=== PATIENT | female | born 1945 | race Caucasian/White ===

== ENCOUNTER 2023-01-16 16:23 | Inpatient (IN) | payer MEDICARE, MEDICAID ==
[2023-01-16] MEDS ORDERED: Piperacillin/Tazobactam 4.5 GM VIAL ONE (17:25)
[2023-01-16 17:29] LABS: #Basophils 0.1 thou/uL (0.0-0.2); #Monocytes 1.2 thou/uL (0.11-0.59); #Neutrophils 14.3 thou/uL (1.40-6.50); %Basophils 0.8 % (0.0-1.0); %Eosinophils 0.1 % (0.0-10.0); %Lymphocytes 10.7 % (21.0-51.0); %Monocytes 6.8 % (0.0-10.0); Hemoglobin 10.8 g/dL (12.0-16.0); Mean Corpuscular HGB CONC 33.8 g/dL (32.0-36.0); Mean Platelet Volume 9.3 fL (7.4-10.4); Platelet Count 576 10x3/uL (130-400); RBC Distribution Width 17.9 % (11.5-14.5); Red Blood Cell (RBC) Count 3.72 mill/uL (4.20-5.40); White Blood Cell (WBC) Count 17.7 10x3/uL (4.8-10.8)
[2023-01-16 17:45] LABS: ALT (SGPT) 11 U/L (8-55); AST (SGOT) 20 U/L (5-34); Alkaline Phosphatase 80 U/L (40-110); Anion Gap 16 mmol/L (10-20); BUN (Urea Nitrogen) 23 mg/dL (9.8-20.1); Bilirubin, Total 0.5 mg/dL (0.2-1.2); Calc. Creatinine Clearance 0 mL/min (70-130); Calcium 8.7 mg/dL (7.8-10.44); Carbon Dioxide 26 mmol/L (23-31); Chloride 100 mmol/L (98-107); Estimated GFR 81; Globulin 2.6 g/dL (2.4-3.5); Glucose 92 mg/dL (83-110); Potassium 3.9 mmol/L (3.5-5.1); Protein, Total 5.6 g/dL (5.8-8.1); Sodium 138 mmol/L (136-145)
[2023-01-16] MEDS ORDERED: Vancomycin HCl 750 MG in Sodium Chloride 0.9% 250 ML 250 ML IVPB SCH (19:00)
[2023-01-16 19:10] LABS: Bilirubin Negative (Negative); Blood, Urine 1+ (Negative); CAUTI Indications for Culture Dysuria,urgency,freq; Clarity Turbid (Clear); Glucose, Urine (Dipstick) Normal (Negative); Ketone, Urine Trace mg/dL (Negative); Leukocyte 500 Leu/uL (Negative); Nitrite 1+ (Negative); Protein, Urine (Dipstick) 30 mg/dL (Neg-Trace); Urobilinogen Normal mg/dL (Less than 2); pH, Urine 5.5 (5.0-9.0)
[2023-01-16 19:20] LABS: Specific Gravity, Urine 1.053 (1.002-1.036)
[2023-01-16 19:21] LABS: Bacteria/HPF 3+ HPF (None Seen); Squamous Epithelial 0-3 HPF (0-3); WBC/HPF 21-50 HPF (0-3)
[2023-01-16 19:22] LABS: Urine Culture Reflex Yes Yes
[2023-01-16] MEDS ORDERED: Ondansetron PF 4 MG/2 ML Vial IVP PRN (21:18)
[2023-01-16] MEDS ORDERED: Acetaminophen 650 MG Suppository PR PRN (21:18)
[2023-01-16] MEDS ORDERED: Ondansetron ODT 4 MG TAB PO PRN (21:18)
[2023-01-16] MEDS ORDERED: Pantoprazole 40 MG VIAL IVP SCH (22:15)
[2023-01-16] MEDS ORDERED: Piperacillin/Tazobactam 3.375 GM in Sodium Chloride 0.9% 100 ML IVPB SCH (22:45)
[2023-01-16 22:46] VITALS: BMI 17.1
[2023-01-16] MEDS ORDERED: Glucagon 1 MG/ML KIT IM PRN (23:01)
[2023-01-16] MEDS ORDERED: Dextrose 5% in Water 1,000 ML IV PRN (23:01)
[2023-01-16] MEDS ORDERED: Dextrose 50% Abboject 50 ML SYRINGE SLOW IVP PRN (23:01)
[2023-01-16] MEDS ORDERED: HumaLOG 300 UNITS/3 ML VIAL SC PRN ×2 (23:01)
[2023-01-16] MEDS ORDERED: Sodium Chloride 0.9% 1,000 ML IV SCH (23:59)
[2023-01-17] MEDS: Vancomycin HCl 750 MG in Sodium Chloride 0.9% 250 ML 250 ML IVPB SCH ×2 (05:27→18:48)
[2023-01-17 06:24] LABS: #Basophils 0.2 thou/uL (0.0-0.2); #Eosinphils 0.1 thou/uL (0.0-0.7); #Monocytes 1.3 thou/uL (0.11-0.59); %Basophils 1.6 % (0.0-1.0); %Eosinophils 0.5 % (0.0-10.0); %Lymphocytes 16.6 % (21.0-51.0); %Monocytes 11.4 % (0.0-10.0); %Neutrophils 69.2 % (42.0-75.0); Hematocrit 24.9 % (36.0-47.0); Hemoglobin 8.2 g/dL (12.0-16.0); Mean Corpuscular HGB CONC 32.9 g/dL (32.0-36.0); Mean Corpuscular Hemoglobin 28.8 pg (27.0-31.0); Mean Corpuscular Volume 87.4 fl (78.0-98.0); Mean Platelet Volume 9.5 fL (7.4-10.4); RBC Distribution Width 18.1 % (11.5-14.5); Red Blood Cell (RBC) Count 2.85 mill/uL (4.20-5.40); White Blood Cell (WBC) Count 11.6 10x3/uL (4.8-10.8)
[2023-01-17 06:32] LABS: Platelet Count 430 10x3/uL (130-400)
[2023-01-17 06:58] LABS: Anion Gap 12 mmol/L (10-20); BUN (Urea Nitrogen) 19 mg/dL (9.8-20.1); Calc. Creatinine Clearance 42 mL/min (70-130); Calcium 7.6 mg/dL (7.8-10.44); Carbon Dioxide 23 mmol/L (23-31); Chloride 105 mmol/L (98-107); Estimated GFR 73; Glucose 199 mg/dL (83-110); Potassium 3.3 mmol/L (3.5-5.1); Sodium 137 mmol/L (136-145)
[2023-01-17] MEDS ORDERED: Piperacillin/Tazobactam 3.375 GM in Sodium Chloride 0.9% 100 ML IVPB SCH (07:00)
[2023-01-17] MEDS ORDERED: VANCOMYCIN 1.25 GM/250 ML BAG 1.25 GM in Premix Bag 1 BAG IVPB SCH (07:00)
[2023-01-17] MEDS: Piperacillin/Tazobactam 3.375 GM in Sodium Chloride 0.9% 100 ML IVPB SCH ×2 (08:21→15:06)
[2023-01-17] MEDS: Pantoprazole 40 MG VIAL IVP SCH (08:22)
[2023-01-17] MEDS: Sodium Chloride 0.9% 1,000 ML IV SCH (09:50)
[2023-01-17] MEDS ORDERED: Electrolyte Replacement Protocol 1 EACH FS SCH (14:45)
[2023-01-17] MEDS ORDERED: Electrolyte Replacement Protocol FS PRN (15:15)
[2023-01-17 15:45] LABS: Hematocrit 25.8 % (36.0-47.0); Hemoglobin 8.7 g/dL (12.0-16.0); Platelet Count 444 10x3/uL (130-400)
[2023-01-17] MEDS ORDERED: Potassium Chloride 20 MEQ TAB PO SCH (21:00)
[2023-01-17 21:06] LABS: Hematocrit 27.2 % (36.0-47.0); Hemoglobin 8.8 g/dL (12.0-16.0); Platelet Count 439 10x3/uL (130-400)
[2023-01-18] MEDS: Piperacillin/Tazobactam 3.375 GM in Sodium Chloride 0.9% 100 ML IVPB SCH ×3 (00:14→15:46)
[2023-01-18] MEDS: Sodium Chloride 0.9% 1,000 ML IV SCH (00:16)
[2023-01-18 05:23] LABS: #Basophils 0.2 thou/uL (0.0-0.2); #Eosinphils 0.3 thou/uL (0.0-0.7); #Monocytes 1.2 thou/uL (0.11-0.59); #Neutrophils 5.8 thou/uL (1.40-6.50); %Basophils 1.6 % (0.0-1.0); %Eosinophils 2.7 % (0.0-10.0); %Monocytes 11.8 % (0.0-10.0); %Neutrophils 55.9 % (42.0-75.0); Hematocrit 23.9 % (36.0-47.0); Hemoglobin 8.1 g/dL (12.0-16.0); Mean Corpuscular HGB CONC 33.9 g/dL (32.0-36.0); Mean Corpuscular Hemoglobin 29.5 pg (27.0-31.0); Mean Corpuscular Volume 86.9 fl (78.0-98.0); Mean Platelet Volume 9.3 fL (7.4-10.4); Platelet Count 397 10x3/uL (130-400); RBC Distribution Width 18.1 % (11.5-14.5); Red Blood Cell (RBC) Count 2.75 mill/uL (4.20-5.40); White Blood Cell (WBC) Count 10.4 10x3/uL (4.8-10.8)
[2023-01-18 05:46] LABS: Anion Gap 11 mmol/L (10-20); BUN (Urea Nitrogen) 11 mg/dL (9.8-20.1); Calc. Creatinine Clearance 47 mL/min (70-130); Calcium 7.2 mg/dL (7.8-10.44); Carbon Dioxide 22 mmol/L (23-31); Chloride 107 mmol/L (98-107); Estimated GFR 84; Glucose 78 mg/dL (83-110); Potassium 3.1 mmol/L (3.5-5.1); Sodium 137 mmol/L (136-145)
[2023-01-18 05:47] LABS: Vancomycin, Trough 16.7 ug/mL
[2023-01-18] MEDS: Vancomycin HCl 750 MG in Sodium Chloride 0.9% 250 ML 250 ML IVPB SCH ×2 (06:51→17:46)
[2023-01-18] MEDS ORDERED: Potassium Chloride 20 MEQ TAB PO SCH (08:00)
[2023-01-18] MEDS: Pantoprazole 40 MG VIAL IVP SCH (08:44)
[2023-01-19] MEDS: Piperacillin/Tazobactam 3.375 GM in Sodium Chloride 0.9% 100 ML IVPB SCH ×4 (00:28→23:08)
[2023-01-19] MEDS: Vancomycin HCl 750 MG in Sodium Chloride 0.9% 250 ML 250 ML IVPB SCH ×2 (05:10→19:08)
[2023-01-19 05:57] LABS: #Basophils 0.2 thou/uL (0.0-0.2); #Eosinphils 0.4 thou/uL (0.0-0.7); #Monocytes 1.3 thou/uL (0.11-0.59); #Neutrophils 5.8 thou/uL (1.40-6.50); %Basophils 1.8 % (0.0-1.0); %Eosinophils 3.3 % (0.0-10.0); %Lymphocytes 31.6 % (21.0-51.0); %Monocytes 11.2 % (0.0-10.0); %Neutrophils 50.7 % (42.0-75.0); Hematocrit 26.3 % (36.0-47.0); Hemoglobin 8.9 g/dL (12.0-16.0); Mean Corpuscular HGB CONC 33.8 g/dL (32.0-36.0); Mean Corpuscular Hemoglobin 29.1 pg (27.0-31.0); Mean Corpuscular Volume 85.9 fl (78.0-98.0); Mean Platelet Volume 9.6 fL (7.4-10.4); Platelet Count 432 10x3/uL (130-400); RBC Distribution Width 17.7 % (11.5-14.5); Red Blood Cell (RBC) Count 3.06 mill/uL (4.20-5.40); White Blood Cell (WBC) Count 11.3 10x3/uL (4.8-10.8)
[2023-01-19 06:24] LABS: Anion Gap 12 mmol/L (10-20); BUN (Urea Nitrogen) 7 mg/dL (9.8-20.1); Calc. Creatinine Clearance 53 mL/min (70-130); Calcium 7.3 mg/dL (7.8-10.44); Carbon Dioxide 20 mmol/L (23-31); Chloride 108 mmol/L (98-107); Estimated GFR 90; Glucose 76 mg/dL (83-110); Sodium 137 mmol/L (136-145)
[2023-01-19] MEDS: Pantoprazole 40 MG VIAL IVP SCH (08:05)
[2023-01-19] MEDS ORDERED: Potassium Bicarbonate/Cit Ac 20 MEQ TAB PO SCH (09:00)
[2023-01-19] MEDS ORDERED: ALPRAZolam 0.25 MG TAB PO SCH (09:00)
[2023-01-19 14:24] LABS: Anion Gap 16 mmol/L (10-20); BUN (Urea Nitrogen) 6 mg/dL (9.8-20.1); Calc. Creatinine Clearance 51 mL/min (70-130); Calcium 7.5 mg/dL (7.8-10.44); Carbon Dioxide 20 mmol/L (23-31); Chloride 105 mmol/L (98-107); Estimated GFR 89; Glucose 73 mg/dL (83-110); Potassium 2.8 mmol/L (3.5-5.1); Sodium 138 mmol/L (136-145)
[2023-01-19 18:45] LABS: Vancomycin, Trough 23.4 ug/mL
[2023-01-19] MEDS: Vancomycin HCl 500 MG in Sodium Chloride 0.9% 100 ML IVPB SCH (21:08)
[2023-01-19] MEDS: Mirtazapine 15 MG Soltab PO SCH (21:10)
[2023-01-19] MEDS: Acetaminophen 325 MG TAB PO PRN (21:10)
[2023-01-19] MEDS: ALPRAZolam 0.25 MG TAB PO PRN (21:10)
[2023-01-19] MEDS: Potassium Bicarbonate/Cit Ac 20 MEQ TAB PO SCH (23:07)
[2023-01-20] MEDS: Potassium Bicarbonate/Cit Ac 20 MEQ TAB PO SCH (02:34)
[2023-01-20 07:23] LABS: #Basophils 0.2 thou/uL (0.0-0.2); #Eosinphils 0.3 thou/uL (0.0-0.7); #Monocytes 1.1 thou/uL (0.11-0.59); #Neutrophils 3.6 thou/uL (1.40-6.50); %Basophils 1.9 % (0.0-1.0); %Eosinophils 3.1 % (0.0-10.0); %Lymphocytes 42.5 % (21.0-51.0); %Monocytes 12.1 % (0.0-10.0); %Neutrophils 39.6 % (42.0-75.0); Hematocrit 25.4 % (36.0-47.0); Hemoglobin 8.8 g/dL (12.0-16.0); Mean Corpuscular HGB CONC 34.6 g/dL (32.0-36.0); Mean Corpuscular Hemoglobin 29.6 pg (27.0-31.0); Mean Corpuscular Volume 85.5 fl (78.0-98.0); Mean Platelet Volume 9.4 fL (7.4-10.4); Platelet Count 419 10x3/uL (130-400); RBC Distribution Width 17.5 % (11.5-14.5); Red Blood Cell (RBC) Count 2.97 mill/uL (4.20-5.40); White Blood Cell (WBC) Count 9.1 10x3/uL (4.8-10.8)
[2023-01-20 07:47] LABS: Anion Gap 10 mmol/L (10-20); BUN (Urea Nitrogen) 5 mg/dL (9.8-20.1); Calc. Creatinine Clearance 47 mL/min (70-130); Carbon Dioxide 22 mmol/L (23-31); Chloride 109 mmol/L (98-107); Estimated GFR 86; Glucose 208 mg/dL (83-110); Potassium 2.7 mmol/L (3.5-5.1); Sodium 138 mmol/L (136-145)
[2023-01-20] MEDS: Vancomycin HCl 500 MG in Sodium Chloride 0.9% 100 ML IVPB SCH ×2 (08:39→20:09)
[2023-01-20] MEDS: Piperacillin/Tazobactam 3.375 GM in Sodium Chloride 0.9% 100 ML IVPB SCH ×2 (08:39→15:09)
[2023-01-20] MEDS: Pantoprazole 40 MG VIAL IVP SCH (08:40)
[2023-01-20] MEDS: Potassium Chloride 20 MEQ TAB PO SCH ×2 (08:46→11:56)
[2023-01-20 09:25] LABS: Magnesium 0.7 mg/dL (1.6-2.6)
[2023-01-20] MEDS ORDERED: Magnesium Sulfate 4 GM in Sodium Chloride 0.9% 250 ML 250 ML IVPB SCH (09:30)
[2023-01-20] MEDS ORDERED: Magnesium Sulfate In Water 4 GM in Premix Bag 1 BAG IVPB SCH (11:00)
[2023-01-20 13:10] LABS: Magnesium 1.8 mg/dL (1.6-2.6); Potassium 2.9 mmol/L (3.5-5.1)
[2023-01-20] MEDS ORDERED: Magnesium 2 GM/50 ML(in water) 2 GM in Premix Bag 1 BAG IVPB SCH (15:00)
[2023-01-20] MEDS: Potassium Chloride 20 MEQ in Premix Bag 1 BAG IVPB SCH ×2 (15:09→17:27)
[2023-01-20] MEDS: Acetaminophen 325 MG TAB PO PRN (18:00)
[2023-01-20] MEDS: Mirtazapine 15 MG Soltab PO SCH (20:12)
[2023-01-20] MEDS: ALPRAZolam 0.25 MG TAB PO PRN (20:12)
[2023-01-20 20:40] VITALS: TEMP 97.6
[2023-01-21] MEDS: Piperacillin/Tazobactam 3.375 GM in Sodium Chloride 0.9% 100 ML IVPB SCH ×2 (00:45→08:56)
[2023-01-21 07:06] LABS: #Basophils 0.2 thou/uL (0.0-0.2); #Eosinphils 0.7 thou/uL (0.0-0.7); #Monocytes 1.3 thou/uL (0.11-0.59); #Neutrophils 4.7 thou/uL (1.40-6.50); %Basophils 1.7 % (0.0-1.0); %Eosinophils 5.6 % (0.0-10.0); %Lymphocytes 40.2 % (21.0-51.0); %Monocytes 11.2 % (0.0-10.0); %Neutrophils 40.5 % (42.0-75.0); Hematocrit 27.4 % (36.0-47.0); Hemoglobin 8.9 g/dL (12.0-16.0); Mean Corpuscular HGB CONC 32.5 g/dL (32.0-36.0); Mean Corpuscular Hemoglobin 29.3 pg (27.0-31.0); Mean Platelet Volume 9.3 fL (7.4-10.4); Platelet Count 445 10x3/uL (130-400); RBC Distribution Width 18.6 % (11.5-14.5); Red Blood Cell (RBC) Count 3.04 mill/uL (4.20-5.40); White Blood Cell (WBC) Count 11.6 10x3/uL (4.8-10.8)
[2023-01-21 07:18] LABS: Mean Corpuscular Volume 90.1 fl (78.0-98.0)
[2023-01-21 07:26] LABS: Anion Gap 9 mmol/L (10-20); BUN (Urea Nitrogen) 5 mg/dL (9.8-20.1); Calc. Creatinine Clearance 46 mL/min (70-130); Calcium 7.1 mg/dL (7.8-10.44); Carbon Dioxide 18 mmol/L (23-31); Chloride 116 mmol/L (98-107); Estimated GFR 83; Glucose 142 mg/dL (83-110); Magnesium 2.4 mg/dL (1.6-2.6); Potassium 3.9 mmol/L (3.5-5.1); Sodium 139 mmol/L (136-145)
[2023-01-21] MEDS: Pantoprazole 40 MG VIAL IVP SCH (08:56)
[2023-01-21] MEDS ORDERED: Vancomycin HCl 750 MG in Sodium Chloride 0.9% 250 ML 250 ML IVPB SCH (12:00)
[2023-01-21 12:09] VITALS: BP 146/79
== END 2023-01-21 14:15 | DRG 698 ==
LOC: ERS 16:23 → T4-B 20:07
PROVIDERS: ADMIT Student in an Organized Health Care Education/Training Program; ATTEND Family Medicine
DX: T83.510A Infection and inflammatory reaction due to cystostomy catheter, initial encounter (principal); A41.9 Sepsis, unspecified organism; E43 Unspecified severe protein-calorie malnutrition; K92.0 Hematemesis; E78.00 Pure hypercholesterolemia, unspecified; I10 Essential (primary) hypertension; E11.9 Type 2 diabetes mellitus without complications; F03.90 Unspecified dementia, unspecified severity, without behavioral disturbance, psychotic disturbance, mood disturbance, and anxiety; K21.9 Gastro-esophageal reflux disease without esophagitis; F41.9 Anxiety disorder, unspecified; L89.159 Pressure ulcer of sacral region, unspecified stage; L08.9 Local infection of the skin and subcutaneous tissue, unspecified; D64.9 Anemia, unspecified; E87.6 Hypokalemia; F32.A Depression, unspecified; E83.42 Hypomagnesemia; Z98.51 Tubal ligation status
CPT/HCPCS: 36415; 36416; 71045; 74177; 80048; 80053; 80202; 81001; 83605; 83735; 85025; 87040; 87077; 87086; 87186; 96365; 96367; 97139; C9113; J1815; J2405; J2543; J3370; J3475; J3480; J3490; J7050

== ENCOUNTER 2023-04-12 23:18 | Inpatient (IN) | payer MEDICARE, MEDICAID ==
[2023-04-13] MEDS ORDERED: Dextrose 50% Abboject 50 ML SYRINGE SLOW IVP PRN (00:29)
[2023-04-13] MEDS ORDERED: Glucagon 1 MG/ML KIT IM PRN (00:29)
[2023-04-13] MEDS ORDERED: HumaLOG 300 UNITS/3 ML VIAL SC PRN ×2 (00:29)
[2023-04-13] MEDS ORDERED: HYDROcodone/Acetaminophen 5/325 mg Tablet PO PRN (00:29)
[2023-04-13] MEDS ORDERED: Dextrose 5% in Water 1,000 ML IV PRN (00:29)
[2023-04-13 01:54] LABS: #Basophils 0.1 thou/uL (0.0-0.2); #Eosinphils 0.1 thou/uL (0.0-0.7); #Neutrophils 8.9 thou/uL (1.40-6.50); %Monocytes 13.5 % (0.0-10.0); %Neutrophils 61.2 % (42.0-75.0); Hematocrit 22.4 % (36.0-47.0); Hemoglobin 7.5 g/dL (12.0-16.0); Mean Corpuscular HGB CONC 33.5 g/dL (32.0-36.0); Mean Corpuscular Hemoglobin 31.5 pg (27.0-31.0); Mean Corpuscular Volume 94.1 fl (78.0-98.0); Mean Platelet Volume 9.3 fL (7.4-10.4); Platelet Count 431 10x3/uL (130-400); RBC Distribution Width 14.5 % (11.5-14.5); Red Blood Cell (RBC) Count 2.38 mill/uL (4.20-5.40); White Blood Cell (WBC) Count 14.5 10x3/uL (4.8-10.8)
[2023-04-13 02:02] LABS: Actual Bicarbonate (HCO3v) 20.1 mEq/L (22-28); Base Excess -4.1 mEq/L (-2.0 to +3.0); Calcium, Ionized (venous) 0.98 mmol/L (1.16-1.32); Chloride (VBG) 108 mmol/L (98-106); Hematocrit-VBG 25 % (36.0-47.0); Hemoglobin (Hb) 8.5 g/dL (11.7-16.1); Sodium 136 mmol/L (133-146); pH (venous) 7.402 (7.32-7.43)
[2023-04-13 02:18] LABS: ALT (SGPT) 13 U/L (8-55); AST (SGOT) 21 U/L (5-34); Alkaline Phosphatase 75 U/L (40-110); Anion Gap 15 mmol/L (10-20); BUN (Urea Nitrogen) 15 mg/dL (9.8-20.1); Bilirubin, Total 0.2 mg/dL (0.2-1.2); CRP (Inflammatory) 4.64 mg/dL (= or < 0.5); Calc. Creatinine Clearance 0 mL/min (70-130); Carbon Dioxide 19 mmol/L (23-31); Chloride 109 mmol/L (98-107); Estimated GFR 74; Globulin 1.9 g/dL (2.4-3.5); Glucose 131 mg/dL (83-110); Potassium 2.7 mmol/L (3.5-5.1); Protein, Total 3.9 g/dL (5.8-8.1); Sodium 140 mmol/L (136-145)
[2023-04-13 02:20] LABS: Troponin I Less than 0.010 ng/mL (< 0.028)
[2023-04-13] MEDS ORDERED: Potassium Chloride 20 MEQ TAB PO SCH (02:30)
[2023-04-13 03:11] LABS: Calcium 6.8 mg/dL (7.8-10.44)
[2023-04-13] MEDS ORDERED: metroNIDAZOLE 500 MG in Premix 1 BAG IVPB SCH ×2 (03:15→12:00)
[2023-04-13] MEDS ORDERED: Potassium Chloride 40 MEQ in Premix 1 BAG IVPB SCH (03:15)
[2023-04-13 03:24] LABS: Bilirubin Negative (Negative); Blood, Urine Trace (Negative); Glucose, Urine (Dipstick) Negative (Negative); Ketone, Urine Negative (Negative); Leukocyte Small (Negative); Nitrite Positive (Negative); Protein, Urine (Dipstick) Negative (Neg-Trace); Urobilinogen 0.2 mg/dL (Less than 2)
[2023-04-13] MEDS ORDERED: Magnesium 2 GM/50 ML(in water) 2 GM in Premix 1 BAG IVPB SCH ×3 (03:30→14:00)
[2023-04-13] MEDS ORDERED: Vancomycin (BATCH) 1.25 GM in Premix 1 BAG IVPB SCH ×2 (03:30→09:00)
[2023-04-13 03:35] LABS: Bacteria/HPF 4+ HPF (None Seen); CAUTI Indications for Culture Alt mental st,lethar; Clarity Hazy (Clear); RBC/HPF 0-3 HPF (0-3); Squamous Epithelial 0-3 HPF (0-3); WBC/HPF Greater than 50 HPF (0-3)
[2023-04-13] MEDS: Potassium Chloride 20 MEQ in Premix 1 BAG IVPB SCH ×4 (03:40→09:34)
[2023-04-13] MEDS: Lactated Ringer's 1,000 ML IV SCH ×4 (03:42→20:45)
[2023-04-13 03:52] LABS: #Basophils 0.1 thou/uL (0.0-0.2); #Eosinphils 0.1 thou/uL (0.0-0.7); #Monocytes 1.6 thou/uL (0.11-0.59); #Neutrophils 8.3 thou/uL (1.40-6.50); %Basophils 1.1 % (0.0-1.0); %Eosinophils 0.8 % (0.0-10.0); %Lymphocytes 22.1 % (21.0-51.0); %Neutrophils 63.6 % (42.0-75.0); Hematocrit 24.4 % (36.0-47.0); Hemoglobin 8.1 g/dL (12.0-16.0); Mean Corpuscular HGB CONC 33.2 g/dL (32.0-36.0); Mean Corpuscular Hemoglobin 30.6 pg (27.0-31.0); Mean Corpuscular Volume 92.1 fl (78.0-98.0); Mean Platelet Volume 9.4 fL (7.4-10.4); Platelet Count 492 10x3/uL (130-400); RBC Distribution Width 14.5 % (11.5-14.5); Red Blood Cell (RBC) Count 2.65 mill/uL (4.20-5.40); White Blood Cell (WBC) Count 13.1 10x3/uL (4.8-10.8)
[2023-04-13] MEDS ORDERED: Electrolyte Replacement Protocol 1 EACH FS PRN (04:00)
[2023-04-13] MEDS ORDERED: Calcium Gluc 4.6 MEQ/10 ML (100 MG/ML) SLOW IVP ONE (04:11)
[2023-04-13] MEDS ORDERED: CALCIUM GLUC 1 GM/NS 50 ML 1 GM in Premix 1 BAG IVPB SCH (04:15)
[2023-04-13 04:17] LABS: ALT (SGPT) 15 U/L (8-55); AST (SGOT) 21 U/L (5-34); Albumin 2.2 g/dL (3.4-4.8); Alkaline Phosphatase 84 U/L (40-110); Anion Gap 14 mmol/L (10-20); BUN (Urea Nitrogen) 14 mg/dL (9.8-20.1); Bilirubin, Total 0.3 mg/dL (0.2-1.2); Calc. Creatinine Clearance 41 mL/min (70-130); Carbon Dioxide 23 mmol/L (23-31); Chloride 110 mmol/L (98-107); Estimated GFR 71; Globulin 2.1 g/dL (2.4-3.5); Glucose 149 mg/dL (83-110); Protein, Total 4.3 g/dL (5.8-8.1); Sodium 144 mmol/L (136-145)
[2023-04-13 04:20] LABS: Potassium 2.6 mmol/L (3.5-5.1)
[2023-04-13 04:25] LABS: Phosphorus 2.1 mg/dL (2.3-4.7)
[2023-04-13 04:26] LABS: Magnesium 1.5 mg/dL (1.6-2.6)
[2023-04-13 05:18] LABS: Lactic Acid 1.5 mmol/L (0.5-2.2)
[2023-04-13] MEDS: Meropenem 1 GM in Sodium Chloride 0.9% 100 ML IVPB SCH ×2 (06:36→17:01)
[2023-04-13] MEDS: Heparin 5,000 UNITS/ML VIAL SC SCH ×2 (07:50→20:45)
[2023-04-13] MEDS: Pantoprazole 40 MG VIAL IVP SCH ×2 (07:51→20:45)
[2023-04-13] MEDS ORDERED: FLU VACC QS2023(65UP)/MF59C/PF 60 MCG/0.5 ML SYRINGE IM ONE (09:00)
[2023-04-13] MEDS ORDERED: Heparin 5,000 UNITS/ML VIAL SC SCH (09:00)
[2023-04-13] MEDS ORDERED: Famotidine 20 MG TAB PO SCH (09:00)
[2023-04-13] MEDS ORDERED: Cefepime 2 GM in Sodium Chloride 0.9% 100 ML IVPB SCH (09:00)
[2023-04-13] MEDS ORDERED: Iopamidol 370 76% 100 ML VIAL ONE (11:30)
[2023-04-13 13:08] LABS: Magnesium 1.9 mg/dL (1.6-2.6)
[2023-04-13 13:13] LABS: Anion Gap 11 mmol/L (10-20); BUN (Urea Nitrogen) 12 mg/dL (9.8-20.1); Calc. Creatinine Clearance 46 mL/min (70-130); Calcium 7.1 mg/dL (7.8-10.44); Carbon Dioxide 23 mmol/L (23-31); Chloride 110 mmol/L (98-107); Estimated GFR 83; Glucose 124 mg/dL (83-110); Potassium 3.6 mmol/L (3.5-5.1); Sodium 140 mmol/L (136-145)
[2023-04-13] MEDS: PHOS-NAK 1 PKT PACK PO SCH ×2 (13:51→17:00)
[2023-04-13] MEDS: Vancomycin HCl 750 MG in Sodium Chloride 0.9% 250 ML 250 ML IVPB SCH (17:01)
[2023-04-14] MEDS: Meropenem 1 GM in Sodium Chloride 0.9% 100 ML IVPB SCH ×3 (05:43→21:43)
[2023-04-14] MEDS: Lactated Ringer's 1,000 ML IV SCH ×4 (05:43→20:14)
[2023-04-14 07:01] LABS: #Basophils 0.1 thou/uL (0.0-0.2); #Eosinphils 0.4 thou/uL (0.0-0.7); #Monocytes 1.3 thou/uL (0.11-0.59); #Neutrophils 6.4 thou/uL (1.40-6.50); %Eosinophils 3.9 % (0.0-10.0); %Monocytes 11.6 % (0.0-10.0); Hematocrit 22.8 % (36.0-47.0); Hemoglobin 7.6 g/dL (12.0-16.0); Mean Corpuscular HGB CONC 33.3 g/dL (32.0-36.0); Mean Corpuscular Volume 93.1 fl (78.0-98.0); Mean Platelet Volume 9.6 fL (7.4-10.4); Platelet Count 485 10x3/uL (130-400); RBC Distribution Width 14.6 % (11.5-14.5); Red Blood Cell (RBC) Count 2.45 mill/uL (4.20-5.40)
[2023-04-14 08:09] LABS: Anion Gap 11 mmol/L (10-20); BUN (Urea Nitrogen) 10 mg/dL (9.8-20.1); Calc. Creatinine Clearance 55 mL/min (70-130); Carbon Dioxide 23 mmol/L (23-31); Chloride 106 mmol/L (98-107); Estimated GFR 89; Glucose 127 mg/dL (83-110); Magnesium 2.3 mg/dL (1.6-2.6); Potassium 2.8 mmol/L (3.5-5.1); Sodium 137 mmol/L (136-145)
[2023-04-14 08:18] LABS: Calcium 6.9 mg/dL (7.8-10.44)
[2023-04-14] MEDS ORDERED: Potassium Chloride 20 MEQ TAB PO SCH (08:45)
[2023-04-14] MEDS: Pantoprazole 40 MG VIAL IVP SCH ×2 (08:50→20:16)
[2023-04-14] MEDS: Heparin 5,000 UNITS/ML VIAL SC SCH ×2 (08:50→20:16)
[2023-04-14] MEDS: Potassium Chloride 20 MEQ in Premix 1 BAG IVPB SCH ×4 (09:15→16:50)
[2023-04-14] MEDS: Acetaminophen 325 MG TAB PO PRN (14:00)
[2023-04-14] MEDS: Vancomycin HCl 750 MG in Sodium Chloride 0.9% 250 ML 250 ML IVPB SCH (16:51)
[2023-04-14] MEDS ORDERED: Metoclopramide HCl 10 MG TAB PO PRN (17:52)
[2023-04-14] MEDS ORDERED: Lorazepam 0.5 MG TAB PO PRN (17:54)
[2023-04-14 18:21] LABS: Potassium 4.3 mmol/L (3.5-5.1)
[2023-04-14 18:22] LABS: Vancomycin, Trough 14.1 ug/mL
[2023-04-14] MEDS: Atorvastatin Calcium 40 MG TAB PO SCH (20:15)
[2023-04-14] MEDS: HYDROcodone/Acetaminophen 5/325 mg Tablet PO PRN (20:15)
[2023-04-14] MEDS: Citalopram 20 MG TAB PO SCH (20:15)
[2023-04-14] MEDS: Mirtazapine 15 MG Soltab PO SCH (20:15)
[2023-04-14] MEDS: Sodium Bicarbonate Tab 325 MG TAB PO SCH (20:15)
[2023-04-15] MEDS ORDERED: Lactated Ringer's 500 ML IV SCH (03:30)
[2023-04-15] MEDS: Meropenem 1 GM in Sodium Chloride 0.9% 100 ML IVPB SCH ×3 (05:05→22:23)
[2023-04-15] MEDS: Lactated Ringer's 1,000 ML IV SCH ×3 (05:05→23:05)
[2023-04-15 06:56] LABS: #Basophils 0.1 thou/uL (0.0-0.2); #Eosinphils 0.5 thou/uL (0.0-0.7); #Neutrophils 3.8 thou/uL (1.40-6.50); %Basophils 1.4 % (0.0-1.0); %Eosinophils 6.6 % (0.0-10.0); %Monocytes 13.3 % (0.0-10.0); %Neutrophils 47.9 % (42.0-75.0); Hematocrit 23.9 % (36.0-47.0); Hemoglobin 7.8 g/dL (12.0-16.0); Mean Corpuscular HGB CONC 32.6 g/dL (32.0-36.0); Mean Corpuscular Hemoglobin 30.5 pg (27.0-31.0); Mean Corpuscular Volume 93.4 fl (78.0-98.0); Mean Platelet Volume 9.4 fL (7.4-10.4); Platelet Count 452 10x3/uL (130-400); RBC Distribution Width 14.8 % (11.5-14.5); Red Blood Cell (RBC) Count 2.56 mill/uL (4.20-5.40); White Blood Cell (WBC) Count 7.8 10x3/uL (4.8-10.8)
[2023-04-15 07:25] LABS: Anion Gap 8 mmol/L (10-20); BUN (Urea Nitrogen) 8 mg/dL (9.8-20.1); Calc. Creatinine Clearance 64 mL/min (70-130); Carbon Dioxide 23 mmol/L (23-31); Chloride 109 mmol/L (98-107); Estimated GFR 91; Glucose 98 mg/dL (83-110); Magnesium 1.8 mg/dL (1.6-2.6); Potassium 3.6 mmol/L (3.5-5.1); Sodium 136 mmol/L (136-145)
[2023-04-15 07:33] LABS: Calcium 6.8 mg/dL (7.8-10.44)
[2023-04-15] MEDS ORDERED: Magnesium 2 GM/50 ML(in water) 2 GM in Premix 1 BAG IVPB SCH (08:15)
[2023-04-15] MEDS: metFORMIN 500 MG TAB PO SCH ×2 (08:34→17:15)
[2023-04-15] MEDS: Potassium Chloride 20 MEQ TAB PO SCH (08:34)
[2023-04-15] MEDS: Multivit, Therapeutic 1 TAB PO SCH (08:34)
[2023-04-15] MEDS: Pantoprazole 40 MG VIAL IVP SCH (08:34)
[2023-04-15] MEDS: Heparin 5,000 UNITS/ML VIAL SC SCH ×2 (08:34→22:27)
[2023-04-15] MEDS: Citalopram 20 MG TAB PO SCH ×2 (08:34→22:27)
[2023-04-15] MEDS: Ferrous Sulfate 325 MG TAB PO SCH (08:34)
[2023-04-15] MEDS: Sodium Bicarbonate Tab 325 MG TAB PO SCH ×2 (08:34→22:26)
[2023-04-15] MEDS: Spironolactone 25 MG TAB PO SCH (08:35)
[2023-04-15 12:16] LABS: Adenovirus F 40-41 Not Detected (Not Detected); Astrovirus Not Detected (Not Detected); C. difficile toxin A+B Not Detected (Not Detected); Campylobacter by PCR Not Detected (Not Detected); Cryptosporidium Not Detected (Not Detected); Cyclospora cayetanensis Not Detected (Not Detected); Entamoeba histolytica Not Detected (Not Detected); Enteroaggregative E. coli Not Detected (Not Detected); Enteropathogenic E. coli Not Detected (Not Detected); Enterotoxigenic E. coli Not Detected (Not Detected); Giardia lamblia Not Detected (Not Detected); Norovirus GI-GII Not Detected (Not Detected); Plesiomonas shigelloides Not Detected (Not Detected); Rotavirus A Not Detected (Not Detected); Salmonella Not Detected (Not Detected); Sapovirus Not Detected (Not Detected); Shiga-toxin-producing E coli Not Detected (Not Detected); Shigella/Enteroinvasive E coli Not Detected (Not Detected); Vibrio Not Detected (Not Detected); Vibrio cholerae Not Detected (Not Detected); Yersinia enterocolitica Not Detected (Not Detected)
[2023-04-15] MEDS: HYDROcodone/Acetaminophen 5/325 mg Tablet PO PRN (17:00)
[2023-04-15] MEDS: Vancomycin HCl 750 MG in Sodium Chloride 0.9% 250 ML 250 ML IVPB SCH (17:11)
[2023-04-15] MEDS: Atorvastatin Calcium 40 MG TAB PO SCH (22:26)
[2023-04-16] MEDS: Mirtazapine 15 MG Soltab PO SCH ×2 (01:45→22:59)
[2023-04-16 06:12] LABS: #Basophils 0.2 thou/uL (0.0-0.2); #Eosinphils 0.5 thou/uL (0.0-0.7); #Monocytes 1.5 thou/uL (0.11-0.59); #Neutrophils 4.4 thou/uL (1.40-6.50); %Basophils 1.6 % (0.0-1.0); %Eosinophils 4.7 % (0.0-10.0); %Monocytes 14.7 % (0.0-10.0); %Neutrophils 44.5 % (42.0-75.0); Hematocrit 26.9 % (36.0-47.0); Hemoglobin 8.8 g/dL (12.0-16.0); Mean Corpuscular HGB CONC 32.7 g/dL (32.0-36.0); Mean Corpuscular Hemoglobin 31.4 pg (27.0-31.0); Mean Corpuscular Volume 96.1 fl (78.0-98.0); Mean Platelet Volume 9.4 fL (7.4-10.4); Platelet Count 515 10x3/uL (130-400); White Blood Cell (WBC) Count 9.9 10x3/uL (4.8-10.8)
[2023-04-16] MEDS: Meropenem 1 GM in Sodium Chloride 0.9% 100 ML IVPB SCH ×3 (06:50→22:47)
[2023-04-16 07:08] LABS: Anion Gap 13 mmol/L (10-20); BUN (Urea Nitrogen) 7 mg/dL (9.8-20.1); Calc. Creatinine Clearance 64 mL/min (70-130); Carbon Dioxide 19 mmol/L (23-31); Chloride 109 mmol/L (98-107); Estimated GFR 91; Glucose 67 mg/dL (83-110); Potassium 4.2 mmol/L (3.5-5.1); Sodium 137 mmol/L (136-145)
[2023-04-16 07:11] LABS: Calcium 6.9 mg/dL (7.8-10.44)
[2023-04-16] MEDS ORDERED: Magnesium 2 GM/50 ML(in water) 2 GM in Premix 1 BAG IVPB SCH (08:00)
[2023-04-16] MEDS: Potassium Chloride 20 MEQ TAB PO SCH (09:28)
[2023-04-16] MEDS: Sodium Bicarbonate Tab 325 MG TAB PO SCH ×2 (09:28→22:47)
[2023-04-16] MEDS: Citalopram 20 MG TAB PO SCH ×2 (09:28→22:46)
[2023-04-16] MEDS: Ferrous Sulfate 325 MG TAB PO SCH (09:28)
[2023-04-16] MEDS: Spironolactone 25 MG TAB PO SCH (09:28)
[2023-04-16] MEDS: metFORMIN 500 MG TAB PO SCH ×2 (09:29→18:05)
[2023-04-16] MEDS: Multivit, Therapeutic 1 TAB PO SCH (09:29)
[2023-04-16] MEDS: Heparin 5,000 UNITS/ML VIAL SC SCH ×2 (09:29→22:47)
[2023-04-16] MEDS ORDERED: Calcium Gluconate 100 MG/ML 10 ML IVPB SCH (10:00)
[2023-04-16] MEDS: CALCIUM GLUC 1 GM/NS 50 ML 1 GM in Premix 1 BAG IVPB SCH ×4 (13:14→14:59)
[2023-04-16 13:49] LABS: Potassium (VBG) 2.61 mmol/L (3.70-5.30)
[2023-04-16] MEDS: Lactated Ringer's 1,000 ML IV SCH ×2 (14:13→15:07)
[2023-04-16] MEDS: HYDROcodone/Acetaminophen 5/325 mg Tablet PO PRN (14:15)
[2023-04-16] MEDS ORDERED: Ipratropium/Albuterol 3 ML NEB NEB PRN (14:30)
[2023-04-16 17:24] LABS: Vancomycin, Trough 19.7 ug/mL
[2023-04-16] MEDS ORDERED: Ondansetron ODT 4 MG TAB PO PRN (17:46)
[2023-04-16] MEDS ORDERED: Loperamide HCl 2 MG CAP PO PRN (17:46)
[2023-04-16] MEDS: Vancomycin HCl 500 MG in Sodium Chloride 0.9% 100 ML IVPB SCH (18:36)
[2023-04-16] MEDS: Atorvastatin Calcium 40 MG TAB PO SCH (22:46)
[2023-04-16] MEDS: Calcium Carbonate 500 MG ChewTAB PO SCH (22:47)
[2023-04-17] MEDS: Meropenem 1 GM in Sodium Chloride 0.9% 100 ML IVPB SCH ×3 (06:35→22:48)
[2023-04-17 06:42] LABS: #Basophils 0.2 thou/uL (0.0-0.2); #Eosinphils 0.6 thou/uL (0.0-0.7); #Monocytes 1.9 thou/uL (0.11-0.59); #Neutrophils 5.2 thou/uL (1.40-6.50); %Basophils 1.2 % (0.0-1.0); %Eosinophils 4.8 % (0.0-10.0); %Lymphocytes 37.9 % (21.0-51.0); %Monocytes 14.9 % (0.0-10.0); %Neutrophils 40.8 % (42.0-75.0); Hematocrit 25.1 % (36.0-47.0); Hemoglobin 8.2 g/dL (12.0-16.0); Mean Corpuscular HGB CONC 32.7 g/dL (32.0-36.0); Mean Corpuscular Hemoglobin 31.1 pg (27.0-31.0); Mean Corpuscular Volume 95.1 fl (78.0-98.0); Mean Platelet Volume 9.5 fL (7.4-10.4); Platelet Count 511 10x3/uL (130-400); RBC Distribution Width 15.1 % (11.5-14.5); Red Blood Cell (RBC) Count 2.64 mill/uL (4.20-5.40); White Blood Cell (WBC) Count 12.8 10x3/uL (4.8-10.8)
[2023-04-17] MEDS: Lactated Ringer's 1,000 ML IV SCH ×2 (07:18→14:06)
[2023-04-17 07:25] LABS: Anion Gap 11 mmol/L (10-20); BUN (Urea Nitrogen) 9 mg/dL (9.8-20.1); Calc. Creatinine Clearance 62 mL/min (70-130); Calcium 7.4 mg/dL (7.8-10.44); Carbon Dioxide 21 mmol/L (23-31); Chloride 109 mmol/L (98-107); Estimated GFR 90; Glucose 90 mg/dL (83-110); Potassium 3.8 mmol/L (3.5-5.1); Sodium 137 mmol/L (136-145)
[2023-04-17] MEDS ORDERED: Non-Formulary Item 1 EACH (Omeprazole [Omeprazole] 20 MG Tab.Rap.Dr) PO SCH (09:00)
[2023-04-17] MEDS ORDERED: Lisinopril 10 MG TAB PO SCH (09:00)
[2023-04-17] MEDS: Calcium Carbonate 500 MG ChewTAB PO SCH ×2 (09:02→22:48)
[2023-04-17] MEDS: Aspirin Chewable 81 MG TAB PO SCH (09:02)
[2023-04-17] MEDS: Potassium Chloride 20 MEQ TAB PO SCH (09:02)
[2023-04-17] MEDS: Sodium Bicarbonate Tab 325 MG TAB PO SCH ×2 (09:02→22:47)
[2023-04-17] MEDS: Ferrous Sulfate 325 MG TAB PO SCH (09:02)
[2023-04-17] MEDS: Spironolactone 25 MG TAB PO SCH (09:03)
[2023-04-17] MEDS: Citalopram 20 MG TAB PO SCH ×2 (09:03→22:48)
[2023-04-17] MEDS: Multivit, Therapeutic 1 TAB PO SCH (09:03)
[2023-04-17] MEDS: metFORMIN 500 MG TAB PO SCH ×2 (09:03→18:08)
[2023-04-17] MEDS: Heparin 5,000 UNITS/ML VIAL SC SCH ×2 (11:28→22:49)
[2023-04-17] MEDS: Mirtazapine 15 MG Soltab PO SCH (22:48)
[2023-04-17] MEDS: Atorvastatin Calcium 40 MG TAB PO SCH (22:48)
[2023-04-17] MEDS ORDERED: Vancomycin HCl 500 MG in Sodium Chloride 0.9% 100 ML IVPB SCH (23:00)
[2023-04-18] MEDS: Vancomycin HCl 500 MG in Sodium Chloride 0.9% 100 ML IVPB SCH (00:27)
[2023-04-18] MEDS: Lactated Ringer's 1,000 ML IV SCH ×2 (06:24→15:07)
[2023-04-18] MEDS: Meropenem 1 GM in Sodium Chloride 0.9% 100 ML IVPB SCH ×3 (06:25→20:35)
[2023-04-18 06:56] LABS: #Basophils 0.1 thou/uL (0.0-0.2); #Eosinphils 0.3 thou/uL (0.0-0.7); #Monocytes 1.2 thou/uL (0.11-0.59); #Neutrophils 4.9 thou/uL (1.40-6.50); %Lymphocytes 32.8 % (21.0-51.0); %Monocytes 12.1 % (0.0-10.0); %Neutrophils 50.8 % (42.0-75.0); Hematocrit 25.5 % (36.0-47.0); Hemoglobin 8.1 g/dL (12.0-16.0); Mean Corpuscular HGB CONC 31.8 g/dL (32.0-36.0); Mean Corpuscular Hemoglobin 30.3 pg (27.0-31.0); Mean Corpuscular Volume 95.5 fl (78.0-98.0); Mean Platelet Volume 9.2 fL (7.4-10.4); Platelet Count 446 10x3/uL (130-400); RBC Distribution Width 15.2 % (11.5-14.5); Red Blood Cell (RBC) Count 2.67 mill/uL (4.20-5.40); White Blood Cell (WBC) Count 9.6 10x3/uL (4.8-10.8)
[2023-04-18 07:41] LABS: Anion Gap 9 mmol/L (10-20); BUN (Urea Nitrogen) 9 mg/dL (9.8-20.1); Calc. Creatinine Clearance 66 mL/min (70-130); Calcium 7.3 mg/dL (7.8-10.44); Carbon Dioxide 23 mmol/L (23-31); Chloride 110 mmol/L (98-107); Estimated GFR 92; Glucose 98 mg/dL (83-110); Potassium 3.5 mmol/L (3.5-5.1); Sodium 138 mmol/L (136-145)
[2023-04-18] MEDS ORDERED: Potassium Chloride 20 MEQ TAB PO SCH (08:45)
[2023-04-18] MEDS: metFORMIN 500 MG TAB PO SCH ×2 (09:26→16:52)
[2023-04-18] MEDS: Citalopram 20 MG TAB PO SCH ×2 (09:26→20:38)
[2023-04-18] MEDS: Spironolactone 25 MG TAB PO SCH (09:26)
[2023-04-18] MEDS: Sodium Bicarbonate Tab 325 MG TAB PO SCH ×2 (09:26→20:38)
[2023-04-18] MEDS: Potassium Chloride 20 MEQ TAB PO SCH (09:27)
[2023-04-18] MEDS: Multivit, Therapeutic 1 TAB PO SCH (09:28)
[2023-04-18] MEDS: Ferrous Sulfate 325 MG TAB PO SCH (09:28)
[2023-04-18] MEDS: Aspirin Chewable 81 MG TAB PO SCH (09:28)
[2023-04-18] MEDS: Calcium Carbonate 500 MG ChewTAB PO SCH ×2 (09:28→20:39)
[2023-04-18] MEDS: Heparin 5,000 UNITS/ML VIAL SC SCH ×2 (09:28→20:36)
[2023-04-18] MEDS: traMADol HCl 50 MG TAB PO PRN (10:16)
[2023-04-18] MEDS: HYDROcodone/Acetaminophen 5/325 mg Tablet PO PRN (15:07)
[2023-04-18] MEDS: Mirtazapine 15 MG Soltab PO SCH (20:35)
[2023-04-18] MEDS: Atorvastatin Calcium 40 MG TAB PO SCH (20:38)
[2023-04-19] MEDS: Meropenem 1 GM in Sodium Chloride 0.9% 100 ML IVPB SCH ×3 (05:38→21:34)
[2023-04-19] MEDS: Lactated Ringer's 1,000 ML IV SCH ×2 (05:45→18:07)
[2023-04-19 09:14] LABS: #Basophils 0.1 thou/uL (0.0-0.2); #Eosinphils 0.3 thou/uL (0.0-0.7); #Neutrophils 3.6 thou/uL (1.40-6.50); %Basophils 1.4 % (0.0-1.0); %Eosinophils 3.9 % (0.0-10.0); %Lymphocytes 37.5 % (21.0-51.0); %Neutrophils 44.8 % (42.0-75.0); Hematocrit 21.4 % (36.0-47.0); Mean Corpuscular HGB CONC 32.7 g/dL (32.0-36.0); Mean Corpuscular Hemoglobin 31.4 pg (27.0-31.0); Platelet Count 157 10x3/uL (130-400); RBC Distribution Width 15.4 % (11.5-14.5); Red Blood Cell (RBC) Count 2.23 mill/uL (4.20-5.40)
[2023-04-19] MEDS: Aspirin Chewable 81 MG TAB PO SCH (09:39)
[2023-04-19] MEDS: Ferrous Sulfate 325 MG TAB PO SCH (09:40)
[2023-04-19] MEDS: Sodium Bicarbonate Tab 325 MG TAB PO SCH ×2 (09:40→21:34)
[2023-04-19] MEDS: Citalopram 20 MG TAB PO SCH ×2 (09:41→21:34)
[2023-04-19] MEDS: Potassium Chloride 20 MEQ TAB PO SCH (09:41)
[2023-04-19] MEDS: Multivit, Therapeutic 1 TAB PO SCH (09:41)
[2023-04-19] MEDS: metFORMIN 500 MG TAB PO SCH ×2 (09:41→16:17)
[2023-04-19] MEDS: Calcium Carbonate 500 MG ChewTAB PO SCH ×2 (09:41→21:34)
[2023-04-19] MEDS: Spironolactone 25 MG TAB PO SCH (09:41)
[2023-04-19] MEDS: Heparin 5,000 UNITS/ML VIAL SC SCH (09:42)
[2023-04-19 09:49] LABS: Anion Gap 9 mmol/L (10-20); BUN (Urea Nitrogen) 7 mg/dL (9.8-20.1); Calc. Creatinine Clearance 81 mL/min (70-130); Carbon Dioxide 23 mmol/L (23-31); Chloride 110 mmol/L (98-107); Estimated GFR 93; Glucose 85 mg/dL (83-110); Potassium 4.2 mmol/L (3.5-5.1); Sodium 138 mmol/L (136-145)
[2023-04-19 10:08] LABS: Calcium 6.9 mg/dL (7.8-10.44)
[2023-04-19] MEDS: HYDROcodone/Acetaminophen 5/325 mg Tablet PO PRN (12:49)
[2023-04-19] MEDS: Atorvastatin Calcium 40 MG TAB PO SCH (21:34)
[2023-04-19] MEDS: Mirtazapine 15 MG Soltab PO SCH (21:35)
[2023-04-20 04:58] LABS: #Basophils 0.1 thou/uL (0.0-0.2); #Eosinphils 0.4 thou/uL (0.0-0.7); #Monocytes 1.3 thou/uL (0.11-0.59); #Neutrophils 4.6 thou/uL (1.40-6.50); %Basophils 1.2 % (0.0-1.0); %Eosinophils 3.7 % (0.0-10.0); %Lymphocytes 39.7 % (21.0-51.0); %Monocytes 11.9 % (0.0-10.0); Hematocrit 23.7 % (36.0-47.0); Hemoglobin 7.7 g/dL (12.0-16.0); Mean Corpuscular HGB CONC 32.5 g/dL (32.0-36.0); Mean Corpuscular Hemoglobin 30.8 pg (27.0-31.0); Mean Corpuscular Volume 94.8 fl (78.0-98.0); Mean Platelet Volume 9.5 fL (7.4-10.4); RBC Distribution Width 15.3 % (11.5-14.5); White Blood Cell (WBC) Count 10.6 10x3/uL (4.8-10.8)
[2023-04-20 05:02] LABS: Platelet Count 547 10x3/uL (130-400)
[2023-04-20 05:27] LABS: Anion Gap 10 mmol/L (10-20); BUN (Urea Nitrogen) 7 mg/dL (9.8-20.1); Calc. Creatinine Clearance 77 mL/min (70-130); Carbon Dioxide 22 mmol/L (23-31); Chloride 108 mmol/L (98-107); Estimated GFR 92; Glucose 128 mg/dL (83-110); Sodium 136 mmol/L (136-145)
[2023-04-20 05:29] LABS: Calcium 6.9 mg/dL (7.8-10.44)
[2023-04-20] MEDS: Meropenem 1 GM in Sodium Chloride 0.9% 100 ML IVPB SCH ×3 (05:45→20:57)
[2023-04-20] MEDS: Calcium Carbonate 500 MG ChewTAB PO SCH ×2 (09:46→20:56)
[2023-04-20] MEDS: Sodium Bicarbonate Tab 325 MG TAB PO SCH ×2 (09:46→20:56)
[2023-04-20] MEDS: Citalopram 20 MG TAB PO SCH ×2 (09:47→20:56)
[2023-04-20] MEDS: Spironolactone 25 MG TAB PO SCH (09:47)
[2023-04-20] MEDS: Multivit, Therapeutic 1 TAB PO SCH (09:47)
[2023-04-20] MEDS: metFORMIN 500 MG TAB PO SCH ×2 (09:48→16:13)
[2023-04-20] MEDS: Ferrous Sulfate 325 MG TAB PO SCH (09:48)
[2023-04-20] MEDS: Potassium Chloride 20 MEQ TAB PO SCH (09:48)
[2023-04-20] MEDS: Lactated Ringer's 1,000 ML IV SCH (09:50)
[2023-04-20] MEDS: Atorvastatin Calcium 40 MG TAB PO SCH (20:57)
[2023-04-20] MEDS: Mirtazapine 15 MG Soltab PO SCH (20:57)
[2023-04-21] MEDS: Meropenem 1 GM in Sodium Chloride 0.9% 100 ML IVPB SCH ×3 (05:53→21:26)
[2023-04-21 06:03] LABS: #Basophils 0.2 thou/uL (0.0-0.2); #Eosinphils 0.7 thou/uL (0.0-0.7); #Monocytes 1.5 thou/uL (0.11-0.59); #Neutrophils 4.2 thou/uL (1.40-6.50); %Basophils 1.5 % (0.0-1.0); %Eosinophils 6.2 % (0.0-10.0); %Lymphocytes 41.7 % (21.0-51.0); %Monocytes 12.9 % (0.0-10.0); %Neutrophils 37.3 % (42.0-75.0); Hematocrit 24.6 % (36.0-47.0); Mean Corpuscular HGB CONC 32.5 g/dL (32.0-36.0); Mean Corpuscular Hemoglobin 31.3 pg (27.0-31.0); Mean Corpuscular Volume 96.1 fl (78.0-98.0); Mean Platelet Volume 9.1 fL (7.4-10.4); Platelet Count 529 10x3/uL (130-400); RBC Distribution Width 15.3 % (11.5-14.5); Red Blood Cell (RBC) Count 2.56 mill/uL (4.20-5.40); White Blood Cell (WBC) Count 11.2 10x3/uL (4.8-10.8)
[2023-04-21 06:32] LABS: ALT (SGPT) 12 U/L (8-55); AST (SGOT) 24 U/L (5-34); Albumin 1.9 g/dL (3.4-4.8); Alkaline Phosphatase 100 U/L (40-110); Anion Gap 9 mmol/L (10-20); BUN (Urea Nitrogen) 7 mg/dL (9.8-20.1); Bilirubin, Total 0.3 mg/dL (0.2-1.2); Calc. Creatinine Clearance 74 mL/min (70-130); Carbon Dioxide 24 mmol/L (23-31); Chloride 110 mmol/L (98-107); Estimated GFR 91; Globulin 1.8 g/dL (2.4-3.5); Glucose 102 mg/dL (83-110); Potassium 4.2 mmol/L (3.5-5.1); Protein, Total 3.7 g/dL (5.8-8.1); Sodium 139 mmol/L (136-145)
[2023-04-21] MEDS: Multivit, Therapeutic 1 TAB PO SCH (08:58)
[2023-04-21] MEDS: Sodium Bicarbonate Tab 325 MG TAB PO SCH ×2 (08:58→21:07)
[2023-04-21] MEDS: Calcium Carbonate 500 MG ChewTAB PO SCH ×2 (08:58→21:07)
[2023-04-21] MEDS: metFORMIN 500 MG TAB PO SCH ×2 (08:59→17:55)
[2023-04-21] MEDS: Citalopram 20 MG TAB PO SCH ×2 (08:59→21:07)
[2023-04-21] MEDS: Potassium Chloride 20 MEQ TAB PO SCH (08:59)
[2023-04-21] MEDS: Ferrous Sulfate 325 MG TAB PO SCH (08:59)
[2023-04-21 15:03] VITALS: BMI 23.1
[2023-04-21] MEDS: Mirtazapine 15 MG Soltab PO SCH (21:07)
[2023-04-21] MEDS: Atorvastatin Calcium 40 MG TAB PO SCH (21:07)
[2023-04-22] MEDS: Meropenem 1 GM in Sodium Chloride 0.9% 100 ML IVPB SCH ×3 (05:02→21:35)
[2023-04-22] MEDS: Citalopram 20 MG TAB PO SCH ×2 (09:26→21:42)
[2023-04-22] MEDS: Potassium Chloride 20 MEQ TAB PO SCH (09:26)
[2023-04-22] MEDS: Multivit, Therapeutic 1 TAB PO SCH (09:26)
[2023-04-22] MEDS: Sodium Bicarbonate Tab 325 MG TAB PO SCH ×2 (09:26→21:42)
[2023-04-22] MEDS: Ferrous Sulfate 325 MG TAB PO SCH (09:26)
[2023-04-22] MEDS: metFORMIN 500 MG TAB PO SCH ×2 (09:26→16:17)
[2023-04-22] MEDS: Calcium Carbonate 500 MG ChewTAB PO SCH ×2 (09:26→21:42)
[2023-04-22] MEDS: Acetaminophen 325 MG TAB PO PRN (12:22)
[2023-04-22] MEDS ORDERED: Guaifenesin DM 100-10/5 ML UDCUP PO PRN (21:22)
[2023-04-22] MEDS: traMADol HCl 50 MG TAB PO PRN (21:42)
[2023-04-22] MEDS: Mirtazapine 15 MG TAB PO SCH (21:42)
[2023-04-22] MEDS: Atorvastatin Calcium 40 MG TAB PO SCH (21:44)
[2023-04-23] MEDS: Meropenem 1 GM in Sodium Chloride 0.9% 100 ML IVPB SCH ×3 (06:39→21:01)
[2023-04-23] MEDS: Ferrous Sulfate 325 MG TAB PO SCH (09:03)
[2023-04-23] MEDS: Calcium Carbonate 500 MG ChewTAB PO SCH ×2 (09:03→20:46)
[2023-04-23] MEDS: Sodium Bicarbonate Tab 325 MG TAB PO SCH ×2 (09:04→20:38)
[2023-04-23] MEDS: Multivit, Therapeutic 1 TAB PO SCH (09:04)
[2023-04-23] MEDS: Citalopram 20 MG TAB PO SCH ×2 (09:04→20:38)
[2023-04-23] MEDS: metFORMIN 500 MG TAB PO SCH (09:04)
[2023-04-23] MEDS: Potassium Chloride 20 MEQ TAB PO SCH (09:04)
[2023-04-23] MEDS ORDERED: Iopamidol-370 76% 500 ML MDV (1 ML CHARGE) ONE (13:53)
[2023-04-23] MEDS ORDERED: GASTROGRAFIN 30 ML BOT ONE (13:53)
[2023-04-23] MEDS: traMADol HCl 50 MG TAB PO PRN (16:35)
[2023-04-23] MEDS: Acetaminophen 325 MG TAB PO PRN (20:37)
[2023-04-23] MEDS: Atorvastatin Calcium 40 MG TAB PO SCH (20:38)
[2023-04-23] MEDS: Mirtazapine 15 MG TAB PO SCH (20:38)
[2023-04-24] MEDS: Acetaminophen 325 MG TAB PO PRN (00:46)
[2023-04-24] MEDS: Meropenem 1 GM in Sodium Chloride 0.9% 100 ML IVPB SCH ×3 (05:17→22:52)
[2023-04-24] MEDS: Sodium Bicarbonate Tab 325 MG TAB PO SCH ×2 (08:22→20:28)
[2023-04-24] MEDS: Multivit, Therapeutic 1 TAB PO SCH (08:23)
[2023-04-24] MEDS: Potassium Chloride 20 MEQ TAB PO SCH (08:23)
[2023-04-24] MEDS: Citalopram 20 MG TAB PO SCH ×2 (08:23→20:29)
[2023-04-24] MEDS: Ferrous Sulfate 325 MG TAB PO SCH (08:23)
[2023-04-24] MEDS: Calcium Carbonate 500 MG ChewTAB PO SCH ×2 (08:23→20:29)
[2023-04-24] MEDS ORDERED: HYDROcodone/Acetaminophen 5/325 mg Tablet PO PRN (18:24)
[2023-04-24] MEDS ORDERED: traMADol HCl 50 MG TAB PO PRN (18:25)
[2023-04-24] MEDS: Mirtazapine 15 MG TAB PO SCH (20:29)
[2023-04-24] MEDS: Atorvastatin Calcium 40 MG TAB PO SCH (20:29)
[2023-04-25] MEDS: Meropenem 1 GM in Sodium Chloride 0.9% 100 ML IVPB SCH (05:59)
[2023-04-25 08:25] VITALS: BP 148/71; TEMP 97.8
[2023-04-25] MEDS: Sodium Bicarbonate Tab 325 MG TAB PO SCH (09:01)
[2023-04-25] MEDS: Potassium Chloride 20 MEQ TAB PO SCH (09:01)
[2023-04-25] MEDS: Multivit, Therapeutic 1 TAB PO SCH (09:01)
[2023-04-25] MEDS: Calcium Carbonate 500 MG ChewTAB PO SCH (09:01)
[2023-04-25] MEDS: Ferrous Sulfate 325 MG TAB PO SCH (09:01)
[2023-04-25] MEDS: Citalopram 20 MG TAB PO SCH (09:01)
== END 2023-04-25 09:45 | DRG 698 ==
LOC: ERS 23:18 → IMCU/EMU 04-13 01:01 → T4-B 04-15 11:41
PROVIDERS: ADMIT Internal Medicine; ATTEND Internal Medicine
PROC: 0T9B70Z Drainage of Bladder with Drainage Device, Via Natural or Artificial Opening (ICD-10-PCS; principal; 2023-04-13)
PROC: 4A043R1 Measurement of Venous Saturation, Peripheral, Percutaneous Approach (ICD-10-PCS; 2023-04-13)
PROC: 3E03329 Introduction of Other Anti-infective into Peripheral Vein, Percutaneous Approach (ICD-10-PCS; 2023-04-13)
PROC: 02HV33Z Insertion of Infusion Device into Superior Vena Cava, Percutaneous Approach (ICD-10-PCS; 2023-04-20)
PROC: B5181ZA Fluoroscopy of Superior Vena Cava using Low Osmolar Contrast, Guidance (ICD-10-PCS; 2023-04-20)
PROC: B548ZZA Ultrasonography of Superior Vena Cava, Guidance (ICD-10-PCS; 2023-04-20)
DX: T83.510A Infection and inflammatory reaction due to cystostomy catheter, initial encounter (principal); A41.9 Sepsis, unspecified organism; R65.20 Severe sepsis without septic shock; E87.20 Acidosis, unspecified; E44.0 Moderate protein-calorie malnutrition; Z68.1 Body mass index [BMI] 19.9 or less, adult; D62 Acute posthemorrhagic anemia; T83.511A Infection and inflammatory reaction due to indwelling urethral catheter, initial encounter; K52.9 Noninfective gastroenteritis and colitis, unspecified; I10 Essential (primary) hypertension; Z79.899 Other long term (current) drug therapy; E78.00 Pure hypercholesterolemia, unspecified; K21.9 Gastro-esophageal reflux disease without esophagitis; F03.90 Unspecified dementia, unspecified severity, without behavioral disturbance, psychotic disturbance, mood disturbance, and anxiety; Z98.51 Tubal ligation status; F41.9 Anxiety disorder, unspecified; Z98.890 Other specified postprocedural states; L89.159 Pressure ulcer of sacral region, unspecified stage; E87.6 Hypokalemia; E83.42 Hypomagnesemia; Z90.49 Acquired absence of other specified parts of digestive tract; N31.9 Neuromuscular dysfunction of bladder, unspecified; E83.51 Hypocalcemia; Z79.4 Long term (current) use of insulin; D12.8 Benign neoplasm of rectum; Z79.01 Long term (current) use of anticoagulants; F39 Unspecified mood [affective] disorder; E11.649 Type 2 diabetes mellitus with hypoglycemia without coma; R31.0 Gross hematuria; Z74.01 Bed confinement status; Z99.3 Dependence on wheelchair; Y84.6 Urinary catheterization as the cause of abnormal reaction of the patient, or of later complication, without mention of misadventure at the time of the procedure
CPT/HCPCS: 36415; 36416; 36569; 74022; 74177; 76770; 80048; 80053; 80202; 81001; 82805; 83605; 83735; 84100; 84145; 84484; 85025; 86140; 87040; 87077; 87086; 87186; 87324; 87449; 87507; 93005; 93010; 96374; 97139; C1751; C9113; J0613; J1644; J1815; J2185; J3370; J3475; J3480; J3490; J7050; J7120; Q9963; Q9967